=== PATIENT | male | born 1960 | race Caucasian/White ===

== ENCOUNTER → 2023-06-26 | Outpatient (CLI) | payer OTHER ==
--- NOTE | 2023-06-26 08:01 | US ---
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 Dedicated CT is recommended
== END | disposition home or self-care (01) ==
LOC: RADUSWWP 07:12
PROVIDERS: ATTEND Internal Medicine Gastroenterology
DX: B18.2 Chronic viral hepatitis C (principal)
CPT/HCPCS: 76705

== ENCOUNTER → 2023-07-08 | Outpatient (CLI) | payer OTHER ==
--- NOTE | 2023-07-08 09:03 | CT ---
EXAMINATION TYPE: CT abdomen wo/w con CT DLP: 868.8 mGycm, Automated exposure control for dose reduction was used. DATE OF EXAM: 07/08/2023 8:51 AM COMPARISON: Liver ultrasound 06/26/2023 CLINICAL INDICATION:Male, 63 years old with history of R93.89 ABNORMAL FINDINGS ON DX IMAGING OF OTH BODY; abnormal finding pancreas TECHNIQUE: Multiphase CT of the abdomen following the administration of 100 cc of Isovue 300 IV cont rast material. Coronal and sagittal reformats were performed. FINDINGS: LOWER CHEST: Unremarkable ABDOMEN LIVER: Noncirrhotic morphology. No focal lesion identified. GALLBLADDER AND BILE DUCTS: Unremarkable. PANCREAS: Mild fatty infiltration. No pancreatic ductal dilatation. No pancreatic parenchymal calcifi cations. No focal lesion identified. SPLEEN: Calcified granulomas identified and curvilinear calcified capsule likely related to prior inj ury. ADRENAL GLANDS: Unremarkable. KIDNEYS AND URETERS: No evidence of hydronephrosis or renal calculus. The kidneys enhance symmetrical ly. Subcentimeter likely cyst within the superior pole the left kidney. STOMACH AND BOWEL: Stomach and duodenum are unremarkable. No evidence of bowel obstruction. PERITONEUM: No evidence of pneumoperitoneum or free fluid. VASCULATURE: No evidence of aortic aneurysm. MUSCULOSKELETAL: No acute osseous abnormalities. Grade 1 anterolisthesis of L5 on S1 with bilateral p ars defects. Moderate degenerative changes L5-S1. LYMPH NODES: Mildly enlarged periportal lymph nodes largest measuring 1.9 cm short axis (series 9, im age 40). SOFT TISSUE/ABDOMINAL WALL: Unremarkable IMPRESSION: 1. No acute abdominal process. 2. Mildly enlarged nonspecific periportal lymph nodes measuring up to 1.9 cm short axis. 3. No definitive pancreatic lesion. 4. Grade 1 anterolisthesis of L5 on S1 with bilateral pars defects.
[2023-07-08 11:11] LABS: Basophils # (A) 0.03 X 10*3/uL (0.00-0.10); Basophils % (A) 0.5 %; Eosinophils % (A) 12.5 %; HCT 43.7 % (39.6-50.0); HGB 14.5 d/dL (13.0-17.0); Lymphocytes # (A) 1.47 X 10*3/uL (0.90-5.00); Lymphocytes % (A) 26.2 %; MCH 29.2 pg (27.0-32.0); MCHC 33.2 d/dL (32.0-37.0); MCV 87.9 FL (80.0-97.0); Mean Platelet Volume 9.7 FL (9.5-12.2); Monocytes # (A) 0.65 X 10*3/uL (0.20-1.00); Monocytes % (A) 11.6 %; NRBC Per 100 WBC 0 X 10*3/uL (0.00-0.01); Neutrophils # (A) 2.76 X 10*3/uL (1.80-7.70); Platelet Count 229 X 10*3/uL (140-440); RBC 4.97 X 10*6/uL (4.40-5.60); RDW 13.6 % (11.5-14.5); WBC 5.62 X 10*3/uL (4.50-10.00)
[2023-07-08 11:14] LABS: ALT 65 U/L (10-49); AST 39 U/L (14-35); Albumin 4.6 d/dL (3.8-4.9); Albumin/Globulin Ratio 1.31 Ratio (1.60-3.17); Alkaline Phosphatase 63 U/L (41-126); BUN/Creat Ratio 23.56 Ratio (12.00-20.00); Blood Urea Nitrogen 21.2 mg/dL (9.0-27.0); Calcium 9.7 mg/dL (8.7-10.3); Carbon Dioxide 27.9 mmol/L (21.6-31.8); Chloride 101 mmol/L (96-109); Globulin 3.5 d/dL (1.6-3.3); Glucose 92 mg/dL (70-110); Potassium 4.7 mmol/L (3.5-5.5); Sodium 137 mmol/L (135-145); Total Bilirubin 0.8 mg/dL (0.3-1.2); Total Protein 8.1 d/dL (6.2-8.2)
== END | disposition home or self-care (01) ==
LOC: RADCTMAIN 07:06
PROVIDERS: ATTEND Internal Medicine Gastroenterology
DX: M43.17 Spondylolisthesis, lumbosacral region (principal); R59.0 Localized enlarged lymph nodes; R93.89 Abnormal findings on diagnostic imaging of other specified body structures
CPT/HCPCS: 87522; 80053; 85025; 82105; 74170; 36415; Q9967

== ENCOUNTER → 2023-12-30 | Outpatient (CLI) | payer OTHER ==
[2023-12-30 15:42] LABS: Basophils # (A) 0.03 X 10*3/uL (0.00-0.10); Basophils % (A) 0.6 %; Eosinophils # (A) 0.49 X 10*3/uL (0.04-0.35); Eosinophils % (A) 9.2 %; HCT 46.9 % (39.6-50.0); HGB 15.7 g/dL (13.0-17.0); Lymphocytes # (A) 1.43 X 10*3/uL (0.90-5.00); MCH 29.1 pg (27.0-32.0); MCHC 33.5 g/dL (32.0-37.0); MCV 86.9 FL (80.0-97.0); Mean Platelet Volume 9.6 FL (9.5-12.2); Monocytes # (A) 0.45 X 10*3/uL (0.20-1.00); Monocytes % (A) 8.5 %; NRBC Per 100 WBC 0 X 10*3/uL (0.00-0.01); Neutrophils # (A) 2.89 X 10*3/uL (1.80-7.70); Neutrophils % (A) 54.5 %; Platelet Count 193 X 10*3/uL (140-440); RDW 13.8 % (11.5-14.5)
[2023-12-30 16:24] LABS: ALT 19 U/L (10-49); AST 24 U/L (14-35); Albumin 4.8 g/dL (3.8-4.9); Albumin/Globulin Ratio 1.41 Ratio (1.60-3.17); Alkaline Phosphatase 67 U/L (41-126); Alpha Fetoprotein, Tumor Mkr <3.00 ng/mL (0.00-7.90); Blood Urea Nitrogen 18.9 mg/dL (9.0-27.0); Calcium 10.3 mg/dL (8.7-10.3); Carbon Dioxide 20.7 mmol/L (21.6-31.8); Chloride 100 mmol/L (96-109); Globulin 3.4 g/dL (1.6-3.3); Glucose 89 mg/dL (70-110); Potassium 4.9 mmol/L (3.5-5.5); Sodium 136 mmol/L (135-145); Total Bilirubin 1.1 mg/dL (0.3-1.2); Total Protein 8.2 g/dL (6.2-8.2)
== END | disposition home or self-care (01) ==
LOC: LABWHC1 09:01
PROVIDERS: ATTEND Internal Medicine Gastroenterology
DX: B18.2 Chronic viral hepatitis C (principal); K74.60 Unspecified cirrhosis of liver
CPT/HCPCS: 36415; 80053; 82105; 85025; 87522

== ENCOUNTER → 2024-07-28 | Outpatient (CLI) | payer OTHER ==
--- NOTE | 2024-07-28 08:52 | US ---
EXAMINATION TYPE: US liver DATE OF EXAM: 07/28/2024 COMPARISON: NONE CLINICAL INDICATION: Male, 64 years old with history of K74.60 CIRRHOSIS OF LIVER; Cirrhosis TECHNIQUE: Grayscale and color Doppler imaging of the right upper quadrant was performed. FINDINGS: EXAM MEASUREMENTS: Liver Length: 11.7 cm Gallbladder Wall: 0.2 cm CBD: 0.4 cm Right Kidney: 11.7 x 4.0 x 4.1 cm Pancreas: Obscured by bowel gas Liver: appears wnl Gallbladder: no evidence of stones Evidence for sonographic Alejandre's sign: no CBD: appears wnl Right Kidney: no evidence of hydronephrosis IMPRESSION: No evidence for obstructive uropathy or renal calculus. [facility], , 07/28/2024 8:50 AM
== END | disposition home or self-care (01) ==
LOC: RADUSWWP 08:02
PROVIDERS: ATTEND Internal Medicine Gastroenterology
DX: K74.60 Unspecified cirrhosis of liver (principal)
CPT/HCPCS: 76705

== ENCOUNTER → 2025-01-20 | Outpatient (CLI) | payer OTHER ==
--- NOTE | 2025-01-20 09:25 | US ---
EXAMINATION TYPE: US liver DATE OF EXAM: 01/20/2025 COMPARISON: US 07/28/24 CLINICAL INDICATION: Male, 64 years old with history of K74.60 UNSPECIFIED CIRRHOSIS OF LIVER; Cirrho sis F/U TECHNIQUE: Grayscale and color Doppler imaging of the right upper quadrant was performed. FINDINGS: EXAM MEASUREMENTS: Liver Length: 15.0 cm Gallbladder Wall: 0.1 cm CBD: 0.5 cm Right Kidney: 10.3x4.7x5.2 cm REIMBURSEMENT SPEC NOTES: Pancreas: heterogenous appearance 2.5x1.1x1.9cm hypoechoic heterogenous area at pancreatic head Liver: wnl Gallbladder: tiny non shadowing echogenic area noted at anterior wall measuring 1 mm Evidence for sonographic Alejandre's sign: No CBD: wnl Right Kidney: wnl exam limited by bowel gas IMPRESSION: 1. No evidence for acute process. 2. Hepatocellular disease which could be compatible with diagnosis given of cirrhosis. No suspicious observations within the liver. 3. Possible gallbladder adenomyomatosis versus adherent gallstone versus polyp. [facility], , 01/20/2025 9:23 AM
== END | disposition home or self-care (01) ==
LOC: RADUSWWP 08:10
PROVIDERS: ATTEND Internal Medicine Gastroenterology
DX: K76.89 Other specified diseases of liver (principal); K74.60 Unspecified cirrhosis of liver
CPT/HCPCS: 76705